=== PATIENT | female | born 1965 ===

== ENCOUNTER 2019-05-18 01:37 | Inpatient (IN) ==
[2019-05-18] MEDS ORDERED: Ipratropium/Albuterol Neb 3 ML ONE ×2 (01:48→01:56)
[2019-05-18] MEDS ORDERED: Ipratropium/Albuterol Neb 3 ML IH ONE (01:49)
[2019-05-18] MEDS ORDERED: methylPREDNISolone 125 MG/2 ML VIAL IVP ONE (01:50)
[2019-05-18] MEDS ORDERED: cefTRIAXone 1,000 MG in Water for inj. (sterile) 10 ML IVP ONE (01:53)
[2019-05-18] MEDS ORDERED: Azithromycin 500 MG in D5% in Water 250 ML IVPB ONE (01:53)
[2019-05-18 02:28] LABS: Basophils # 0.1 K/mcL (0.0-0.2); Basophils % 0.4 %; Eosinophils % 0.1 %; Hematocrit 43.1 % (35.3-44.9); Hemoglobin 14.4 g/dL (11.5-15.4); Immature Granulocytes % 0.5 % (0-4); Lymphocytes # 1.1 K/mcL (0.6-4.6); Lymphocytes % 9.7 %; Mean Corpuscular HGB Conc 33.4 g/dL (31.6-35.5); Mean Corpuscular Hemoglobin 31.8 pg (28.0-33.3); Mean Corpuscular Volume 95.1 fL (83.0-100.0); Mean Platelet Volume 9.4 fL (9.4-12.4); Monocytes # 0.6 K/mcL (0.0-1.3); Monocytes % 5.1 %; Neutrophils # 9.6 K/mcL (1.6-8.9); Platelet Count 297 K/mcL (140-400); Red Blood Count 4.53 M/mcL (3.82-4.97); Red Cell Distribution Width 13.5 % (11.5-14.5); Segmented Neutrophils % 84.2 %; White Blood Count 11.5 K/mcL (4.3-11.1)
[2019-05-18 02:50] LABS: Alanine Aminotransferase 22 Units/L (7-52); Albumin 3.9 g/dL (3.5-5.7); Albumin/Globulin Ratio 1.2 (1.1-2.2); Alkaline Phosphatase 81 Units/L (34-104); Aspartate Amino Transferase 13 Units/L (13-39); BUN/Creatinine Ratio 14 (6-26); Bilirubin,Total 0.4 mg/dL (0.3-1.0); Blood Urea Nitrogen 9 mg/dL (6-20); Calcium 9.3 mg/dL (8.6-10.3); Carbon Dioxide 27 mEq/L (23-29); Chloride 104 mEq/L (98-107); Globulin 3.2 g/dL (2.4-3.5); Glucose 120 mg/dL (70-105); Osmolality,Calculated 288 (280-300); Potassium 3.6 mEq/L (3.5-5.1); Sodium 139 mEq/L (136-145); Total Protein 7.1 g/dL (6.4-8.9); eGFR For African Americans > 60 (> 60); eGFR For Non-African Americans > 60 (> 60)
[2019-05-18 02:51] LABS: Troponin I < 0.03 ng/mL (< 0.04)
[2019-05-18] MEDS ORDERED: Naloxone 0.4 MG/ML INJ IVP PRN (06:34)
[2019-05-18] MEDS ORDERED: Isovue-370 500 ML BOTTLE IVP ONE (06:42)
[2019-05-18] MEDS: Ipratropium/Albuterol Neb 3 ML IH SCH ×5 (08:03→23:28)
[2019-05-18] MEDS: Budesonide/Formoterol 160/4.5 1 PUFF INH IH SCH ×2 (15:40→20:17)
[2019-05-18 16:35] LABS: ABG Base Excess 5 mEq/L (-2 to 3); ABG HCO3 31 mEq/L (21-27); ABG Oxygen Saturation 91 % (95-98); ABG PCO2 49 mmHg (35-45); ABG PH 7.41 pH Units (7.32-7.45); ABG PO2 60 mmHg (85-104); ABG TCO2 33 mEq/L (20-26)
[2019-05-18] MEDS: Cefepime HCl 1,000 MG in Water for inj. (sterile) 10 ML IVP SCH (17:15)
[2019-05-18] MEDS: *HR* Heparin 5,000 UNIT/ML VIAL SQ SCH (17:16)
[2019-05-18] MEDS: MethylPREDNISolone 40 MG/ML VIAL IVP SCH ×2 (17:16)
[2019-05-18] MEDS ORDERED: methylPREDNISolone 125 MG/2 ML VIAL IVP SCH (18:00)
[2019-05-19] MEDS: MethylPREDNISolone 40 MG/ML VIAL IVP SCH ×5 (00:54→23:54)
[2019-05-19] MEDS: Cefepime HCl 1,000 MG in Water for inj. (sterile) 10 ML IVP SCH ×4 (00:54→23:54)
[2019-05-19] MEDS: Ipratropium/Albuterol Neb 3 ML IH SCH ×6 (04:13→23:10)
[2019-05-19 05:01] LABS: Basophils % 0.3 %; Hematocrit 45.5 % (35.3-44.9); Hemoglobin 14.8 g/dL (11.5-15.4); Immature Granulocytes % 0.8 % (0-4); Lymphocytes # 0.4 K/mcL (0.6-4.6); Lymphocytes % 5.7 %; Mean Corpuscular HGB Conc 32.5 g/dL (31.6-35.5); Mean Corpuscular Hemoglobin 31.8 pg (28.0-33.3); Mean Corpuscular Volume 97.6 fL (83.0-100.0); Mean Platelet Volume 9.1 fL (9.4-12.4); Monocytes # 0.2 K/mcL (0.0-1.3); Monocytes % 2.6 %; Platelet Count 274 K/mcL (140-400); Red Blood Count 4.66 M/mcL (3.82-4.97); Red Cell Distribution Width 13.8 % (11.5-14.5); Segmented Neutrophils % 90.6 %; White Blood Count 7.7 K/mcL (4.3-11.1)
[2019-05-19 05:47] LABS: Alanine Aminotransferase 16 Units/L (7-52); Albumin 3.7 g/dL (3.5-5.7); Albumin/Globulin Ratio 1.1 (1.1-2.2); Alkaline Phosphatase 77 Units/L (34-104); Aspartate Amino Transferase 12 Units/L (13-39); BUN/Creatinine Ratio 22 (6-26); Bilirubin,Total 0.3 mg/dL (0.3-1.0); Blood Urea Nitrogen 15 mg/dL (6-20); Carbon Dioxide 29 mEq/L (23-29); Chloride 104 mEq/L (98-107); Globulin 3.3 g/dL (2.4-3.5); Glucose 174 mg/dL (70-105); Osmolality,Calculated 295 (280-300); Phosphorous 3.4 mg/dL (2.7-4.5); Potassium 4.5 mEq/L (3.5-5.1); Sodium 140 mEq/L (136-145); eGFR For African Americans > 60 (> 60); eGFR For Non-African Americans > 60 (> 60)
[2019-05-19] MEDS: *HR* Heparin 5,000 UNIT/ML VIAL SQ SCH ×2 (06:14→18:19)
[2019-05-19] MEDS: Budesonide/Formoterol 160/4.5 1 PUFF INH IH SCH ×2 (07:17→19:33)
[2019-05-19] MEDS: Azithromycin 500 MG in D5% in Water 250 ML IVPB SCH (08:07)
[2019-05-19] MEDS: Nicotine 21 MG PATCH.TD24 TD SCH (08:09)
[2019-05-19] MEDS ORDERED: cefTRIAXone 1,000 MG in Water for inj. (sterile) 10 ML IVP SCH (09:00)
[2019-05-19] MEDS ORDERED: Aminoglycoside Consult 1 EACH MC ONE (09:46)
[2019-05-19] MEDS ORDERED: *HR* OxyCODONE/APAP 10/325 TABLET PO PRN (21:38)
[2019-05-19] MEDS: ALPRAZolam 0.25 MG TABLET PO PRN (23:53)
[2019-05-20] MEDS: Ipratropium/Albuterol Neb 3 ML IH SCH ×6 (04:20→23:03)
[2019-05-20 06:04] LABS: Hemoglobin 14.7 g/dL (11.5-15.4); Mean Corpuscular HGB Conc 32.7 g/dL (31.6-35.5); Mean Corpuscular Hemoglobin 31.5 pg (28.0-33.3); Mean Corpuscular Volume 96.6 fL (83.0-100.0); Mean Platelet Volume 9.4 fL (9.4-12.4); Platelet Count 302 K/mcL (140-400); Red Blood Count 4.66 M/mcL (3.82-4.97); Red Cell Distribution Width 13.9 % (11.5-14.5)
[2019-05-20 06:06] LABS: White Blood Count 13.5 K/mcL (4.3-11.1)
[2019-05-20] MEDS: Azithromycin 500 MG in D5% in Water 250 ML IVPB SCH (06:13)
[2019-05-20] MEDS: MethylPREDNISolone 40 MG/ML VIAL IVP SCH ×2 (06:13→16:59)
[2019-05-20] MEDS: *HR* Heparin 5,000 UNIT/ML VIAL SQ SCH ×2 (06:13→16:59)
[2019-05-20 06:25] LABS: Alanine Aminotransferase 14 Units/L (7-52); Albumin 3.6 g/dL (3.5-5.7); Alkaline Phosphatase 79 Units/L (34-104); Aspartate Amino Transferase 10 Units/L (13-39); BUN/Creatinine Ratio 19 (6-26); Bilirubin,Total 0.3 mg/dL (0.3-1.0); Blood Urea Nitrogen 11 mg/dL (6-20); Calcium 9.3 mg/dL (8.6-10.3); Carbon Dioxide 31 mEq/L (23-29); Chloride 101 mEq/L (98-107); Globulin 3.5 g/dL (2.4-3.5); Glucose 172 mg/dL (70-105); Osmolality,Calculated 291 (280-300); Phosphorous 3.1 mg/dL (2.7-4.5); Potassium 4.5 mEq/L (3.5-5.1); Sodium 139 mEq/L (136-145); Total Protein 7.1 g/dL (6.4-8.9); eGFR For African Americans > 60 (> 60); eGFR For Non-African Americans > 60 (> 60)
[2019-05-20] MEDS: Budesonide/Formoterol 160/4.5 1 PUFF INH IH SCH ×2 (07:20→20:25)
[2019-05-20] MEDS: Cefepime HCl 1,000 MG in Water for inj. (sterile) 10 ML IVP SCH (08:25)
[2019-05-20] MEDS: Nicotine 21 MG PATCH.TD24 TD SCH (08:26)
[2019-05-20] MEDS ORDERED: Budesonide/Formoterol 160/4.5 1 PUFF INH IH SCH (10:00)
[2019-05-20] MEDS ORDERED: cefTRIAXone 2,000 MG in 0.9 % Sodium Chloride Mini Bag 100 ML IVPB SCH (13:00)
[2019-05-20] MEDS ORDERED: Benzonatate 100 MG CAPSULE PO PRN (14:14)
[2019-05-20] MEDS: ALPRAZolam 0.25 MG TABLET PO PRN (23:08)
[2019-05-21] MEDS: Ipratropium/Albuterol Neb 3 ML IH SCH ×3 (04:19→11:28)
[2019-05-21] MEDS: *HR* Heparin 5,000 UNIT/ML VIAL SQ SCH (06:05)
[2019-05-21] MEDS: Azithromycin 500 MG in D5% in Water 250 ML IVPB SCH (06:05)
[2019-05-21] MEDS: MethylPREDNISolone 40 MG/ML VIAL IVP SCH ×2 (06:05→08:40)
[2019-05-21 06:36] VITALS: BP 128/81
[2019-05-21 06:49] LABS: Basophils % 0.1 %; Hematocrit 45.6 % (35.3-44.9); Hemoglobin 14.5 g/dL (11.5-15.4); Immature Granulocytes % 0.5 % (0-4); Lymphocytes # 1.2 K/mcL (0.6-4.6); Lymphocytes % 13.7 %; Mean Corpuscular HGB Conc 31.8 g/dL (31.6-35.5); Mean Corpuscular Volume 97.4 fL (83.0-100.0); Mean Platelet Volume 9.5 fL (9.4-12.4); Monocytes # 0.4 K/mcL (0.0-1.3); Monocytes % 5.1 %; Platelet Count 311 K/mcL (140-400); Red Blood Count 4.68 M/mcL (3.82-4.97); Red Cell Distribution Width 13.8 % (11.5-14.5); Segmented Neutrophils % 80.6 %; White Blood Count 8.7 K/mcL (4.3-11.1)
[2019-05-21 07:02] LABS: Alanine Aminotransferase 15 Units/L (7-52); Albumin 3.6 g/dL (3.5-5.7); Alkaline Phosphatase 78 Units/L (34-104); Aspartate Amino Transferase 11 Units/L (13-39); BUN/Creatinine Ratio 29 (6-26); Bilirubin,Total 0.3 mg/dL (0.3-1.0); Blood Urea Nitrogen 17 mg/dL (6-20); Calcium 9.3 mg/dL (8.6-10.3); Carbon Dioxide 33 mEq/L (23-29); Chloride 101 mEq/L (98-107); Globulin 3.5 g/dL (2.4-3.5); Glucose 108 mg/dL (70-105); Magnesium 2.1 mg/dL (1.6-2.6); Osmolality,Calculated 298 (280-300); Phosphorous 4.1 mg/dL (2.7-4.5); Sodium 143 mEq/L (136-145); Total Protein 7.1 g/dL (6.4-8.9); eGFR For African Americans > 60 (> 60); eGFR For Non-African Americans > 60 (> 60)
[2019-05-21] MEDS: Budesonide/Formoterol 160/4.5 1 PUFF INH IH SCH (07:26)
[2019-05-21] MEDS: Nicotine 21 MG PATCH.TD24 TD SCH (08:26)
[2019-05-21 10:29] LABS: Mycoplasma pneumoniae IgG 0.26 U/L (<=0.09)
[2019-05-21] MEDS ORDERED: CefTRIAXone 2,000 MG VIAL ONE (12:04)
== END 2019-05-21 13:02 | disposition home or self-care (01) | DRG 190 ==
LOC: EMEROOARM 01:37 → 2NENU 01:37 → SUATTDRO 05-19 14:31
PROVIDERS: ADMIT Family Medicine; ATTEND Internal Medicine